=== PATIENT | female | born 1985 | race Caucasian/White ===

== ENCOUNTER 2021-01-04 09:03 | Emergency (ER) | payer OTHER ==
[2021-01-04 10:39] LABS: HEMOGLOBIN 11.2 gm/dl (12.3-15.3); RED BLOOD COUNT 4.36 M/UL (4.00-5.10); WHITE BLOOD COUNT 7.8 K/UL (4.5-11.0)
[2021-01-04 11:39] LABS: BUN/CREATININE RATIO 12 (0-10)
== END 2021-01-04 14:45 | disposition home or self-care (01) ==
LOC: ER1 09:03
PROVIDERS: Emergency Medicine
DX: R07.9 Chest pain, unspecified (principal); R42 Dizziness and giddiness; R19.7 Diarrhea, unspecified; E11.9 Type 2 diabetes mellitus without complications; I10 Essential (primary) hypertension; Z20.822 Contact with and (suspected) exposure to COVID-19
CPT/HCPCS: 0240U; 71045; 80053; 81001; 82550; 82553; 83605; 83690; 83880; 84484; 84703; 85025; 85379; 93005; 99285; J0780; J2060; Q9967